=== PATIENT | female | born 1955 | race African-American/Black ===

== ENCOUNTER → 2017-12-19 | Outpatient (CLI) | payer OTHER ==
[~2017-12-19] VITALS: Ht 162.6 cm; Wt 75.3 kg
[~2017-12-19] MED LIST: AMLODIPINE BESY10 MG PO; ANTI-DIARRHEA2 MG PO; ASPIR 8181 M1 PO; ELOCON 0.1% CRE15 GM TP; EUCERIN ORIGIN250 ML TP; FLAGYL500 MG PO; INDERAL LA120 MG PO; LEVAQUIN750 MG PO; LIDEX 0.05% OIN15 GM TP; LISINOPRIL10 MG PO; METFORMIN HCL500 MG PO; SKELAXIN800 MG PO; TRAMADOL HCL50 MG PO; TRIAMCINOLONE A30 GM TP
== END | disposition home or self-care (01) ==
LOC: AMB 06:56
PROVIDERS: Internal Medicine
PROC: 0DBK8ZX Excision of Ascending Colon, Via Natural or Artificial Opening Endoscopic, Diagnostic (ICD-10-PCS; principal; 2017-12-19)
DX: D12.2 Benign neoplasm of ascending colon (principal); K57.30 Diverticulosis of large intestine without perforation or abscess without bleeding; K64.8 Other hemorrhoids; Z80.0 Family history of malignant neoplasm of digestive organs
CPT/HCPCS: 82948; 88305; 93005; J2250